=== PATIENT | male | born 1980 | race Caucasian/White ===

== ENCOUNTER 2017-09-06 19:51 | Emergency (ER) | payer SELFPAY ==
[~2017-09-06 19:51] MED LIST: BACT800T5 PO; CLIN150C14 PO; CYCL10TA PO; DILA8TAB4 PO; EPIP0.3I SQ; IBUP1TAB7 PO; PRED20 PO; VIST50CA PO
[2017-09-06 19:53] VITALS: BP 133/76; PULSE 106; RESP 16; TEMP 98.4; O2SAT 97
[2017-09-06 20:30] VITALS: RESP 22; O2SAT 98
[2017-09-06] MEDS ORDERED: SODIUM CHLORIDE 0.9% FLUSH 10 ML FLUSH IVF PRN (20:30)
[2017-09-06 20:48] LABS: AUTOMATED NEUTROPHIL # 6.3 TH/MM3 (1.8-7.7); BASOPHIL # 0.1 TH/MM3 (0-0.2); BASOPHIL % 0.7 % (0.0-2.0); EOSINOPHIL # 0.2 TH/MM3 (0-0.4); EOSINOPHIL % 1.8 % (0.0-4.0); HEMATOCRIT 41.1 % (39.0-51.0); HEMO FLAGS DIFF FINAL; LYMPH % 22.5 % (9.0-44.0); LYMPHOCYTE # 2.1 TH/MM3 (1.0-4.8); MEAN CELL VOLUME 86.7 FL (80.0-100.0); MEAN CORPUSCULAR HEMOGLOBIN 29.5 PG (27.0-34.0); MONO % 8.1 % (0.0-8.0); NEUT % 66.9 % (16.0-70.0); PLATELET COUNT 324 TH/MM3 (150-450); RED BLOOD COUNT 4.73 MIL/MM3 (4.50-5.90); WHITE BLOOD COUNT 9.5 TH/MM3 (4.0-11.0)
[2017-09-06 20:55] LABS: APTT (PATIENT) 29.4 SEC (24.3-30.1); INTERNATIONAL NORMALIZED RATIO 0.9 RATIO; PROTHROMBIN TIME - PATIENT 10.1 SEC (9.8-11.6)
[2017-09-06 21:12] LABS: ANION GAP 6 MEQ/L (5-15); BICARBONATE 27.2 MEQ/L (21.0-32.0); BLOOD UREA NITROGEN 12 MG/DL (7-18); CHLORIDE 106 MEQ/L (98-107); GLOMERULAR FILTRATION RATE 90 ML/MIN (>89); MAGNESIUM 2.2 MG/DL (1.5-2.5); POTASSIUM 4.2 MEQ/L (3.5-5.1); SODIUM (NA) 139 MEQ/L (136-145)
--- NOTE | 2017-09-06 21:17 | RADRPT ---
EXAM DATE/TIME: 09/06/2017 20:33 [facility] COMPARISON: CHEST SINGLE AP, March 27, 2017, 18:17. INDICATIONS : Chest pain. MEDICAL HISTORY : None. SURGICAL HISTORY : None. ENCOUNTER: Initial ACUITY: 1 day PAIN SCORE: 6/10 LOCATION: chest FINDINGS: A single view of the chest demonstrates the lungs to be symmetrically aerated without evidence of mas s, infiltrate or effusion. The cardiomediastinal contours are unremarkable. Osseous structures are intact. CONCLUSION: No acute disease. Ponce Gamez MD on September 06, 2017 at 21:15 Board Certified Radiologist. This report was verified electronically.
[2017-09-06 21:19] LABS: CREATINE KINASE 164 U/L (39-308)
--- NOTE | 2017-09-06 21:19 | RADRPT ---
EXAM DATE/TIME: 09/06/2017 20:41 [facility] COMPARISON: ANKLE LEFT COMPLETE ([id number]), January 11, 2016, 9:20. INDICATIONS : Left ankle pain. Rolled ankle in a hole. History of remote trauma and fractures as well as osteomyeli tis. MEDICAL HISTORY : None. SURGICAL HISTORY : Left ankle surgery. ENCOUNTER: Initial ACUITY: 1 day PAIN SCORE: 10/10 LOCATION: Left ankle. FINDINGS: AP, lateral and oblique views of the left ankle were obtained and again demonstrate the old fracture deformity of the distal tibia. Extensive degenerative changes again noted in the tibiotalar joint wit h joint space loss and sclerosis. There is no anterior spurring. The previously noted antibiotic impr egnated methylmethacrylate has been removed in the distal tibia. No acute fracture or malalignment is identified. There are milder degenerative changes in the subtalar joint. There is diffuse soft tissu e swelling. CONCLUSION: 1. No acute fracture or malalignment. 2. Old fracture deformity of the tibia with extensive degenerative change again noted in the tibiotal ar joint which is progressed. Ponce Gamez MD on September 06, 2017 at 21:15 Board Certified Radiologist. This report was verified electronically.
--- NOTE | 2017-09-06 21:27 | PD ---
HPI Chief Complaint: Cardiac Complaint Time Seen by Provider: 20:16 Travel History International Travel<30 days: No Contact w/Intl Traveler<30days: No Traveled to known affect area: No History of Present Illness HPI 37-year-old male with PMH of IVDA, MRSA presents to the ED for evaluation of multiple medical complaints. I asked the patient what brings him to the emergency room today he states "my girlfriend just from endocarditis." On presentation the patient complaints of constant pressure-like chest pain. The patient denies associated palpitations, nausea, vomiting, shortness of breath or radiation of the pain. He also complains of multiple small wounds of the bilateral upper extremities. He denies fevers, chills, nausea, vomiting. He also complains of pain in the left ankle. He has a history of ORIF in the area and states that he stepped in a hole while walking backwards the other day and a new has been worse since then. He has been ambulatory since the accident. He states that he noticed some "white things" in his blood after he injected heroin this morning. Denies alcohol or illicit drug use. He adamantly denies ever sharing needles with his girlfriend. He states that he buys TB syringes by the box and never uses a needle twice. PFSH Past Medical History Arthritis: Yes Asthma: Yes (Childhood/allergy induced ) Cancer: No Diminished Hearing: No Musculoskeletal: Yes (chronic back pain) Neurologic: Yes Psychiatric: No Reproductive: No Respiratory: Yes Integumentary: Yes (MULTIPLE SORESnoted throughout ) Immunizations Current: No Tetanus Vaccination: < 5 Years Influenza Vaccination: No Past Surgical History Oral Surgery: Yes (Tonsillectomy, wisdom teeth removed) Tonsillectomy: Yes Other Surgery: Yes (fasciotomy x9 (left ankle)-bone infection) Social History Alcohol Use: Yes Tobacco Use: Yes Substance Use: Yes Allergies-Medications (Allergen,Severity, Reaction): Coded Allergies: ipratropium (Unverified Allergy, Severe, Anaphylaxis, 06/20/17) vancomycin (Unverified Adverse Reaction, Intermediate, red man's syndrome , 06/20/17) *MDRO Multi-Drug Resistant Organism (Verified Adverse Reaction, Unknown, ) 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 Reported Meds & Prescriptions Reported Meds & Active Scripts Active Ibuprofen 800 Mg Tab 800 Mg PO Q8H PRN 7 Days Bactroban Topical (Mupirocin) 22 Gm Cream 1 Applic TOPICAL BID 14 Days Bactrim DS (Sulfamethoxazole-Trimethoprim) 800-160 Mg Tab 1 Tab PO BID Flexeril (Cyclobenzaprine HCl) 10 Mg Tab 10 Mg PO TID Clindamycin (Clindamycin HCl) 150 Mg Cap 300 Mg PO Q6H 10 Days Vistaril (Hydroxyzine Pamoate) 50 Mg Cap 50 Mg PO QID PRN Prednisone 20 Mg Tab 20 Mg PO BID 5 Days Epipen 2-Cuco Inj (Epinephrine) 0.3 Mg/0.3 Ml Pfpen 0.3 Mg SQ ONCE PRN Ibuprofen 800 Mg Tab 800 Mg PO Q8H PRN Bactrim DS (Sulfamethoxazole-Trimethoprim) 800-160 Mg Tab 1 Tab PO BID Reported Flexeril (Cyclobenzaprine HCl) 10 Mg Tab 10 Mg PO BID Dilaudid (Hydromorphone HCl) 8 Mg Tab 8 Mg PO Q8HR PRN Review of Systems Except as stated in HPI: all other systems reviewed are Neg Physical Exam Narrative GENERAL: Well-nourished, well-developed white male in no acute distress. SKIN: Focused skin assessment warm/dry. Multiple areas with superficial abrasions and healing crusts in various stages of healing. Localized edema and erythema around the ~1cm coin-shaped wounds of the left hand without crepitus, warmth, joints, active bleeding or drainage. No lymphatic streaking. HEAD: Normocephalic. EYES: No scleral icterus. No injection or drainage. NECK: Supple, trachea midline. No JVD or lymphadenopathy. CARDIOVASCULAR: Regular rate and rhythm without murmurs, gallops, or rubs. RESPIRATORY: Breath sounds clear and equal bilaterally. No accessory muscle use. GASTROINTESTINAL: Abdomen soft, non-tender, nondistended. Active bowel sounds. MUSCULOSKELETAL: No cyanosis. Homans sign negative bilaterally. FOCUSED LEFT LOWER EXTREMITY EXAM: 2+ DP pulse. Mild edema and tenderness of the ankle joint. Limited ROM secondary to previous surgery. Cap refill less than 2 seconds. Sensation intact to light touch distally. BACK: Nontender without obvious deformity. No CVA tenderness. Data Data Last Documented VS Vital Signs Date Time Temp Pulse Resp B/P (MAP) Pulse Ox O2 Delivery O2 Flow Rate FiO2 09/06/17 22:25 09/06/17 20:30 22 98 Room Air 09/06/17 20:30 97 09/06/17 19:53 98.4 Orders Orders Electrocardiogram (09/06/17 20:17) Basic Metabolic Panel (Bmp) (09/06/17 20:17) Ckmb (Isoenzyme) Profile (09/06/17 20:17) Complete Blood Count With Diff (09/06/17 20:17) Magnesium (Mg) (09/06/17 20:17) Prothrombin Time / Inr (Pt) (09/06/17 20:17) Act Partial Throm Time (Ptt) (09/06/17 20:17) Troponin I (09/06/17 20:17) Chest, Single Ap (09/06/17 20:17) Ecg Monitoring (09/06/17 20:17) Bilateral Bp Monitoring (09/06/17 20:17) Iv Access Insert/Monitor (09/06/17 20:17) Oximetry (09/06/17 20:17) Sodium Chloride 0.9% Flush (Ns Flush) (09/06/17 20:30) Blood Culture (09/06/17 20:17) Ankle, Complete ([id number]) (09/06/17 20:27) Ice/Cold Pack (09/06/17 20:27) CKMB (09/06/17 20:30) CKMB% (09/06/17 20:30) Jovan Bandage (09/06/17 21:45) Sulfamet-Trimeth Ds 800-160 Mg (Bactrim (09/06/17 21:45) Ed Discharge Order (09/06/17 22:18) Labs Laboratory Tests Test 09/06/17 20:30 White Blood Count 9.5 TH/MM3 Red Blood Count 4.73 MIL/MM3 Hemoglobin 14.0 GM/DL Hematocrit 41.1 % Mean Corpuscular Volume 86.7 FL Mean Corpuscular Hemoglobin 29.5 PG Mean Corpuscular Hemoglobin Concent 34.0 % Red Cell Distribution Width 14.0 % Platelet Count 324 TH/MM3 Mean Platelet Volume 7.4 FL Neutrophils (%) (Auto) 66.9 % Lymphocytes (%) (Auto) 22.5 % Monocytes (%) (Auto) 8.1 % Eosinophils (%) (Auto) 1.8 % Basophils (%) (Auto) 0.7 % Neutrophils # (Auto) 6.3 TH/MM3 Lymphocytes # (Auto) 2.1 TH/MM3 Monocytes # (Auto) 0.8 TH/MM3 Eosinophils # (Auto) 0.2 TH/MM3 Basophils # (Auto) 0.1 TH/MM3 CBC Comment DIFF FINAL Differential Comment Prothrombin Time 10.1 SEC Prothromb Time International Ratio 0.9 RATIO Activated Partial Thromboplast Time 29.4 SEC Blood Urea Nitrogen 12 MG/DL Creatinine 0.94 MG/DL Random Glucose 106 MG/DL Calcium Level 9.4 MG/DL Magnesium Level 2.2 MG/DL Sodium Level 139 MEQ/L Potassium Level 4.2 MEQ/L Chloride Level 106 MEQ/L Carbon Dioxide Level 27.2 MEQ/L Anion Gap 6 MEQ/L Estimat Glomerular Filtration Rate 90 ML/MIN Total Creatine Kinase 164 U/L Creatine Kinase MB 4.5 NG/ML Troponin I LESS THAN 0.02 NG/ML MDM Medical Decision Making Medical Screen Exam Complete: Yes Emergency Medical Condition: Yes Differential Diagnosis Folliculitis versus cellulitis versus sepsis versus chest pain versus ankle pain versus osteoarthritis versus other Narrative Course 37-year-old male with PMH of IVDA, MRSA presents to the ED for evaluation of multiple medical complaints. I asked the patient what brings him to the emergency room today he states "my girlfriend just from endocarditis." He complains of possible small wounds of the hands bilaterally, constant pressure- like chest pain and left lower extremity pain and swelling. Patient is tachycardic on presentation but this resolves in the exam room. On physical exam he does have several small wounds of the bilateral hands with notably a little bit of localized erythema and edema on the left hand without crepitus, warmth, cellulitic streaking. There is also some tenderness and swelling of the left ankle which is suspect is secondary to previous injury. Blood cultures were obtained. No elevation of the white count. No concerning abnormalities of the EKG. Cardiac enzymes negative 1. No acute disease on CXR. Extensive osteoarthritis in the left ankle by x-ray. Patient is observed falling asleep while sitting up while waiting for evaluation. We'll treat for cellulitis of the left hand. Patient's prescribed Bactrim DS twice a day 10 days, first dose administered in the ED. He is instructed to take the antibiotics as prescribed, RICE the left ankle. He is stable and discharged home. Diagnosis Primary Impression: Cellulitis of left hand Additional Impression: Osteoarthritis of right ankle Qualified Codes: M19.171 - Post-traumatic osteoarthritis, right ankle and foot Referrals: [facility] Primary Care Physician Patient Instructions: Cellulitis (ED), General Instructions, Osteoarthritis (ED ) Additional Instructions: Rest, hydrate. Return to normal, gentle activities as tolerated. Rest, ice, elevate the extremity. Apply ice no longer than 10-15 minutes per hour a few times a day. 800 mg ibuprofen up to 3 times a day as needed for pain. No running, jumping activities for the next few weeks. Keep your wounds clean, dry and covered. Take the antibiotics as they are prescribed, even if your symptoms resolve. Apply antibiotic ointment twice a day as prescribed. Follow-up with the orthopedist or primary care provider. Return to the ED for worsening symptoms or any urgent or emergent medical condition. Med/Other Pt SpecificInfo: Prescription(s) given Scripts Ibuprofen (Ibuprofen) 800 Mg Tab 800 MG PO Q8H Y for Pain/Inflammation for 7 Days, #21 TAB 0 Refills Prov: Janay Márquez MD 09/06/17 Mupirocin Topical (Bactroban Topical) 22 Gm Cream 1 APPLIC TOPICAL BID for Mgmt Bacterial Infection for 14 Days, #1 TUBE 0 Refills Prov: Janay Márquez MD 09/06/17 Sulfamethoxazole-Trimethoprim (Bactrim DS) 800-160 Mg Tab 1 TAB PO BID for Infection, #14 TAB 0 Refills Prov: Janay Márquez MD 09/06/17 Disposition: 01 DISCHARGE HOME Condition: Stable Angelica Braxton Sep 06, 2017 21:27
[2017-09-06 21:31] LABS: CKMB 4.5 NG/ML (0.5-3.6)
[2017-09-06] MEDS ORDERED: SULFAMETHOXAZOLE-TRIMETHOPRIM DS 800-160 MG TAB PO ONE (21:45)
[2017-09-06] MEDS ORDERED: MUPI2%T TOPICAL (21:47)
[2017-09-06] MEDS ORDERED: BACT800T5 PO (21:47)
[2017-09-06] MEDS ORDERED: IBUP1TAB7 PO (21:47)
--- NOTE | 2017-09-07 13:26 | EKG ---
Date Performed: 09/06/2017 Time Performed: 20:17:37 PTAGE: 37 years EKG: Sinus rhythm POSSIBLE LEFT ATRIAL ENLARGEMENT INCOMPLETE RIGHT BUNDLE BRANCH BLOCK BORDERLINE ECG Compared to haris or tracing no significant change PREVIOUS TRACING DOCTOR: Omid Reyes Interpretating Date/Time 09/07/2017 13:24:05
== END 2017-09-06 22:46 | disposition home or self-care (01) ==
LOC: NEPC 19:51
DX: L03.114 Cellulitis of left upper limb (principal); M19.171 Post-traumatic osteoarthritis, right ankle and foot; J45.909 Unspecified asthma, uncomplicated; G89.29 Other chronic pain; Z72.0 Tobacco use; F11.90 Opioid use, unspecified, uncomplicated
CPT/HCPCS: 71010; 73610; 80048; 82550; 82552; 83735; 84484; 85025; 85610; 85730; 86403; 87040; 87186; 87205; 93005; 99285

== ENCOUNTER 2017-09-15 13:20 | Emergency (ER) | payer SELFPAY ==
[~2017-09-15] VITALS: Ht 185.4 cm; Wt 77.0 kg
[~2017-09-15 13:20] MED LIST changes: +MUPI2%T TOPICAL
[2017-09-15 13:23] VITALS: BP 132/80; PULSE 94; RESP 12; TEMP 98; O2SAT 99
--- NOTE | 2017-09-15 13:52 | PD ---
HPI Chief Complaint: Abnormal Results Time Seen by Provider: 13:33 Travel History International Travel<30 days: No Contact w/Intl Traveler<30days: No Traveled to known affect area: No History of Present Illness HPI The patient is a 37-year-old male who presents to the emergency department for reevaluation of abnormal blood culture result. The patient was seen in the emergency department one week ago for a left hand infection and have blood cultures obtained. The patient received a call today stating that 1 blood pressure grew MRSA, the other blood culture was negative. The patient has a remote history of IV drug abuse, approximately 7-8 years ago. He denies any recent IV drug use. The patient has been taking Bactrim as prescribed, is left-hand symptoms have significantly improved. He denies any systemic symptoms including fever, chills, sweats, generalized malaise, or fatigue. Patient states that left hand has significantly improved. PFSH Past Medical History Arthritis: Yes Asthma: Yes (Childhood/allergy induced ) Cancer: No Diminished Hearing: No Musculoskeletal: Yes (chronic back pain) Neurologic: Yes Psychiatric: No Reproductive: No Respiratory: Yes Integumentary: Yes (MULTIPLE SORESnoted throughout ) Immunizations Current: No Past Surgical History Oral Surgery: Yes (Tonsillectomy, wisdom teeth removed) Tonsillectomy: Yes Other Surgery: Yes (fasciotomy x9 (left ankle)-bone infection) Social History Alcohol Use: Yes (occ) Tobacco Use: Yes Substance Use: Yes (cocaine ) Allergies-Medications (Allergen,Severity, Reaction): Coded Allergies: ipratropium (Unverified Allergy, Severe, Anaphylaxis, 09/15/17) vancomycin (Unverified Adverse Reaction, Intermediate, red man's syndrome , 09/15/17) *MDRO Multi-Drug Resistant Organism (Verified Adverse Reaction, Unknown, 09/15/17) 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 Reported Meds & Prescriptions Reported Meds & Active Scripts Active Ibuprofen 800 Mg Tab 800 Mg PO Q8H PRN 7 Days Bactroban Topical (Mupirocin) 22 Gm Cream 1 Applic TOPICAL BID 14 Days Bactrim DS (Sulfamethoxazole-Trimethoprim) 800-160 Mg Tab 1 Tab PO BID Flexeril (Cyclobenzaprine HCl) 10 Mg Tab 10 Mg PO TID Clindamycin (Clindamycin HCl) 150 Mg Cap 300 Mg PO Q6H 10 Days Vistaril (Hydroxyzine Pamoate) 50 Mg Cap 50 Mg PO QID PRN Prednisone 20 Mg Tab 20 Mg PO BID 5 Days Epipen 2-Cuco Inj (Epinephrine) 0.3 Mg/0.3 Ml Pfpen 0.3 Mg SQ ONCE PRN Ibuprofen 800 Mg Tab 800 Mg PO Q8H PRN Bactrim DS (Sulfamethoxazole-Trimethoprim) 800-160 Mg Tab 1 Tab PO BID Reported Flexeril (Cyclobenzaprine HCl) 10 Mg Tab 10 Mg PO BID Dilaudid (Hydromorphone HCl) 8 Mg Tab 8 Mg PO Q8HR PRN Review of Systems Except as stated in HPI: all other systems reviewed are Neg General / Constitutional: No: Fever, Chills Cardiovascular: No: Chest Pain or Discomfort Respiratory: No: Shortness of Breath Musculoskeletal: Positive: Other (as noted in history of present illness), No: Myalgias, Arthralgias, Weakness Neurologic: No: Weakness Psychiatric: No: Substance Abuse (no IV drug use in the last 7 years) Physical Exam Narrative GENERAL: Awake, alert, pleasant 37-year-old male who appears his stated age and is in no acute respiratory distress. SKIN: Focused skin assessment warm/dry. HEAD: Atraumatic. Normocephalic. EYES: Pupils equal and round. No scleral icterus. No injection or drainage. ENT: No nasal bleeding or discharge. Mucous membranes pink and moist. NECK: Trachea midline. No JVD. CARDIOVASCULAR: Regular rate and rhythm. No murmur appreciated. RESPIRATORY: No accessory muscle use. Clear to auscultation. Breath sounds equal bilaterally. GASTROINTESTINAL: Abdomen soft, non-tender, nondistended. No rebound tenderness. MUSCULOSKELETAL: No obvious deformities. No clubbing. No cyanosis. No edema. The left hand has some old appearing circular lesions which are healing. No acute erythema noted. NEUROLOGICAL: Awake and alert. No obvious cranial nerve deficits. Motor grossly within normal limits. Normal speech. PSYCHIATRIC: Appropriate mood and affect; insight and judgment normal. Data Data Last Documented VS Vital Signs Date Time Temp Pulse Resp B/P (MAP) Pulse Ox O2 Delivery O2 Flow Rate FiO2 09/15/17 13:35 16 Room Air 09/15/17 13:23 98.0 94 132/80 (97) 99 Orders Orders Blood Culture (09/15/17 13:44) MDM Medical Decision Making Medical Screen Exam Complete: Yes Emergency Medical Condition: Yes Medical Record Reviewed: Yes Differential Diagnosis Differential diagnosis includes bacteremia, septicemia, false positive blood culture, contaminated blood culture, pericarditis. Narrative Course I reviewed the patient's EMR, he had one positive blood culture, anaerobic, for MRSA, the other culture was unremarkable. The patient denies any history of IVDA in the last 7 years. He has no current systemic symptoms and has been taking Bactrim. Therefore, 2 blood cultures were obtained and sent to lab. The patient will be discharged home but is advised to give a good number and case needs to be contacted in regards to positive blood culture. He is advised that if these blood cultures are positive he may need admission for IV antibiotics and evaluation of possible hidden source. The patient agrees and understands. Diagnosis Primary Impression: Abnormal laboratory test result Patient Instructions: General Instructions Additional Instructions: Continue taking her medications as previously directed. Med/Other Pt SpecificInfo: No Change to Meds Disposition: 01 DISCHARGE HOME Condition: Stable Manny Pena MD Sep 15, 2017 13:52
== END 2017-09-15 14:06 | disposition home or self-care (01) ==
LOC: NEPD 13:20
DX: R78.89 Finding of other specified substances, not normally found in blood (principal); M19.90 Unspecified osteoarthritis, unspecified site
CPT/HCPCS: 87040; 99283

== ENCOUNTER 2017-09-17 12:56 | Emergency (ER) | payer OTHER ==
[~2017-09-17] VITALS: Ht 185.4 cm; Wt 77.0 kg
[2017-09-17 13:07] VITALS: BP 141/61; PULSE 128; RESP 16; TEMP 98.6; O2SAT 96
[2017-09-17 13:10] VITALS: BP 141/61; PULSE 122; RESP 18; O2SAT 97
[2017-09-17] MEDS ORDERED: IBUP200T47 PO (13:17)
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
[2017-09-17] MEDS ORDERED: MORPHINE SULFATE 4 MG/ML INJ IV PUSH ONE (14:00)
[2017-09-17] MEDS ORDERED: SODIUM CHLOR 0.9% 1000 ML INJ 1,000 ML IV ONE (14:00)
[2017-09-17] MEDS ORDERED: TETANUS/DIPHTHERIA TOXOID ADULT 0.5 ML VIAL IM ONE (14:00)
[2017-09-17] MEDS ORDERED: IOHEXOL 350 MG/ML 10 ML VIAL (for RAD DIAG) IVCONTRAST ONE (14:00)
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
[2017-09-17 14:39] LABS: BASOPHIL # 0.1 TH/MM3 (0-0.2); BASOPHIL % 0.5 % (0.0-2.0); EOSINOPHIL % 0.2 % (0.0-4.0); HEMATOCRIT 40.4 % (39.0-51.0); HEMO FLAGS DIFF FINAL; LYMPH % 12.1 % (9.0-44.0); LYMPHOCYTE # 1.5 TH/MM3 (1.0-4.8); MEAN CELL VOLUME 86.7 FL (80.0-100.0); MEAN CORPUSCULAR HEMOGLOBIN 29.1 PG (27.0-34.0); MEAN CORPUSCULAR HGB CONC 33.5 % (32.0-36.0); MONO % 6.8 % (0.0-8.0); NEUT % 80.4 % (16.0-70.0); PLATELET COUNT 345 TH/MM3 (150-450); RED BLOOD COUNT 4.66 MIL/MM3 (4.50-5.90); WHITE BLOOD COUNT 12.4 TH/MM3 (4.0-11.0)
[2017-09-17 14:50] LABS: BICARBONATE 27.6 MEQ/L (21.0-32.0); POTASSIUM 4.2 MEQ/L (3.5-5.1)
[2017-09-17 15:00] LABS: APTT (PATIENT) 27.5 SEC (24.3-30.1); PROTHROMBIN TIME - PATIENT 10.7 SEC (9.8-11.6)
[2017-09-17 16:03] VITALS: BP 129/78; PULSE 98; RESP 16; O2SAT 100
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
[2017-09-17] MEDS ORDERED: TYLE325T PO (17:29)
== END 2017-09-17 18:23 | disposition home or self-care (01) ==
LOC: NEPD 12:56
DX: S90.512A Abrasion, left ankle, initial encounter (principal); M25.562 Pain in left knee; G89.29 Other chronic pain; F17.200 Nicotine dependence, unspecified, uncomplicated; R00.0 Tachycardia, unspecified; V13.4XXA Pedal cycle driver injured in collision with car, pick-up truck or van in traffic accident, initial encounter; Y93.55 Activity, bike riding
CPT/HCPCS: 70450; 71010; 71260; 72125; 72128; 72131; 73560; 73600; 74177; 80048; 82550; 85025; 85610; 85730; 86850; 86900; 86901; 96361; 96374; 99285; E0113; J2270; J7030; Q9967; 90471